=== PATIENT | female | born 1980 | race Caucasian/White ===

== ENCOUNTER 2017-01-29 16:06 | Emergency (ER) | payer OTHER ==
[~2017-01-29 16:06] MED LIST: ACETAMINOPHEN; ADVIL100 MG; DAY TIME COLD1 EACH; DELSYM30 MG/5 ML PO; MUCINEX D ER T1 EAC1; NIGHT COLD-FLU1 EACH; PREDNISONE PO; ROBITUSSIN A-C10 ML PO; ZITHROMAX PO
== END 2017-01-29 16:59 | disposition home or self-care (01) ==
LOC: SED 16:06
DX: J02.9 Acute pharyngitis, unspecified (principal); B37.0 Candidal stomatitis; I10 Essential (primary) hypertension; Z79.899 Other long term (current) drug therapy
CPT/HCPCS: 87651; 99282; 99283

== ENCOUNTER 2017-06-18 13:58 | Emergency (ER) | payer OTHER ==
[~2017-06-18] VITALS: Ht 162.6 cm; Wt 127.0 kg
--- NOTE | ~2017-06-18 | EKG ---
PATIENT: ELMO DUGAN UNIT #: [id number] Ventricular Rate: 73 BPM Atrial Rate: 73 BPM P-R Interval: 152 ms QRS Duration: 78 ms Q-T Interval: 434 ms QTC Calculation(Bezet): 478 ms P [place]: 10 degrees Calculated R [place]: -3 degrees Diagnosis Line: Normal sinus rhythm Diagnosis Line: Minimal voltage criteria for LVH, may be normal Diagnosis Line: variant Diagnosis Line: Nonspecific T wave abnormality Diagnosis Line: Prolonged QT Diagnosis Line: Abnormal ECG Diagnosis Line: Diagnosis Line: Confirmed by SARITA TILLMAN MD ([id number]) on 06/19/2017 Diagnosis Line: 6:22:54 PM INTERPRETING MD: LAYNE MEDINA
[2017-06-18 15:12] LABS: BASOPHIL% 0.2 % (0-2.5); EOSINOPHIL% 0.3 % (0.0-7.0); HEMATOCRIT 36.8 % (35.0-45.0); HEMOGLOBIN 12.2 gm/dL (12.0-16.0); LYMPHOCYTE# 1.6 X10e3 (1.0-3.5); LYMPHOCYTE% 9.6 % (17.0-45.0); MEAN CELL VOLUME 85.9 FL (83-96); MEAN CORPUSCULAR HEMOGLOBIN 28.4 PG (28-34); MEAN CORPUSCULAR HGB CONC 33.1 g/dL (30-36); MEAN PLATELET VOLUME 9.4 FL (6.5-11.5); MONOCYTE# 0.9 X10e3 (0-1.0); MONOCYTE% 5.5 % (3.0-12.0); NEUTROPHIL# 13.8 X10e3 (1.5-7.1); NEUTROPHIL% 84.4 % (40-75); PLATELET COUNT 227 X10e3 (140-420); RED BLOOD COUNT 4.29 X10e (3.90-5.30); RED CELL DISTRIBUTION WIDTH 15.4 % (11.0-15.5); WHITE BLOOD COUNT 16.4 X10e3 (4.0-10.5)
[2017-06-18 15:17] LABS: DIFF IND YES
[2017-06-18 15:28] LABS: CALCIUM SERUM 8.7 mg/dL (8.4-10.2); CREATININE SERUM 0.9 mg/dL (0.6-1.4); GLOM FILT RATE Estimated 81.7 mL/min (>60); POTASSIUM 3.8 mmol/L (3.5-5.1)
[2017-06-18 15:47] LABS: ANISOCYTOSIS MOD; PLATELET ESTIMATE NORMAL (NORMAL); POIKILOCYTOSIS SL
[2017-06-18 16:16] LABS: BETA-HCG SCREEN-PREGNANCY POS
[2017-06-18 16:36] LABS: BETA-HCG QUANT 2673 mIU/mL
== END 2017-06-18 18:27 | disposition short-term general hospital (02) ==
LOC: CED 13:58
PROVIDERS: Emergency Medicine
DX: O03.9 Complete or unspecified spontaneous abortion without complication (principal); I10 Essential (primary) hypertension
CPT/HCPCS: 36415; 80048; 84702; 84703; 85025; 86900; 86901; 93005; 96360; 99291